=== PATIENT | female | born 1980 | race Two or more races ===

== ENCOUNTER → 2024-10-14 | Outpatient (CLI) | payer MEDICAID, SELFPAY ==
--- NOTE | 2024-10-14 09:14 | XR_ITS ---
Examination: Breast ultrasound complete, bilateral Date and time of exam: October 14, 2024 0930 hours INDICATIONS: Bilateral breast pain beginning 2 years ago, breast sonography report 2023. Right breast 2:00 nodule 11 mm left breast 2:00 nodule 15 mm retroareolar nodule 8 mm Technique: Real-time grayscale ultrasonographic imaging bilateral breasts, including all 4 quadrants as well as nipple retroareolar and axillary regions. Findings: Sonographic images right breast 2:00 cyst 8 x 7 mm 2:00 solid nodule circumscribed 10 x 6 mm Sonographic images left breast 2:00 oval mass lobular margins 18 x 7 x 13 mm IMPRESSION: BI-RADS Category 3: Probably benign findings One additional 6 month bilateral breast sonography follow-up is needed to document stability of bilateral solid breast nodules described above
== END | disposition home or self-care (01) ==
PROVIDERS: PCP Nurse Practitioner Family; Referring Provider Nurse Practitioner Family; Visit Provider Nurse Practitioner Family
DX: N63.12 Unspecified lump in the right breast, upper inner quadrant (principal); N63.21 Unspecified lump in the left breast, upper outer quadrant; N60.01 Solitary cyst of right breast
CPT/HCPCS: 76641